=== PATIENT | male | born 1950 | race Caucasian/White ===

== ENCOUNTER → 2016-12-09 | Outpatient (CLI) | payer BC ==
[~2016-12-09] MED LIST: CIPRO 500MG TA500 MG PO; NEXIUM40 MG/PACK PO
--- NOTE | 2016-12-09 11:25 | RADIOLOGY REPORT PS360 ---
MRI-L-SPINE W/O, MRI-3D RENDERING/MYELOGRAM HISTORY: Bilateral low back pain LOW BACK PAIN ORDERING PHYSICIAN: Debbie Tapia MD PATIENT AGE: 65 years COMPARISON: None TECHNIQUE: Standard multiplanar multiecho sequences are performed without contrast. 3-D MIP and myelographic images are also rendered and reviewed FINDINGS: There is normal alignment. The spinal cord ends at the T12-L1 level. There is mild upper lumbar scoliosis convex right L1-L2: Degenerative disc disease with anterior endplate hypertrophic change and minimal concentric bulging disc. Type I endplate changes involve the anterior and inferior aspect of the L1 vertebral body. There is some minimal right lateral recess narrowing from the minimal bulging disc. L2-L3: Degenerative disc disease with mild bulging disc along with facet and ligamentum flavum hypertrophy with mild bilateral lateral recess and [id number] left-sided foraminal narrowing. Type I endplate changes are present along the left lateral aspect of L2-L3 L3-L4: Mild concentric bulging disc along with facet and ligamentum flavum hypertrophy with mild bilateral lateral recess narrowing and mild bilateral foraminal narrowing. The disc spaces well preserved. L4-5: Mild bulging disc along with mild facet and ligamentum hypertrophy with mild right foraminal narrowing L5-S1: Degenerative disc disease with bulging disc along with facet and ligamentum hypertrophy with [id number] right foraminal narrowing. No canal stenosis or extruded herniated disc. IMPRESSION: 1. Multilevel spondylosis of the lumbar spine as detailed above. Please see above for detailed description at each level. There is variable bulging disc, facet and ligamentum flavum hypertrophy, with areas of lateral recess and foraminal narrowing and type II endplate changes. 2. No disc herniation or canal stenosis
--- NOTE | 2016-12-09 11:25 | RADIOLOGY REPORT PS360 ---
MRI-L-SPINE W/O, MRI-3D RENDERING/MYELOGRAM HISTORY: Bilateral low back pain LOW BACK PAIN ORDERING PHYSICIAN: Debbie Tapia MD PATIENT AGE: 65 years COMPARISON: None TECHNIQUE: Standard multiplanar multiecho sequences are performed without contrast. 3-D MIP and myelographic images are also rendered and reviewed FINDINGS: There is normal alignment. The spinal cord ends at the T12-L1 level. There is mild upper lumbar scoliosis convex right L1-L2: Degenerative disc disease with anterior endplate hypertrophic change and minimal concentric bulging disc. Type I endplate changes involve the anterior and inferior aspect of the L1 vertebral body. There is some minimal right lateral recess narrowing from the minimal bulging disc. L2-L3: Degenerative disc disease with mild bulging disc along with facet and ligamentum flavum hypertrophy with mild bilateral lateral recess and [id number] left-sided foraminal narrowing. Type I endplate changes are present along the left lateral aspect of L2-L3 L3-L4: Mild concentric bulging disc along with facet and ligamentum flavum hypertrophy with mild bilateral lateral recess narrowing and mild bilateral foraminal narrowing. The disc spaces well preserved. L4-5: Mild bulging disc along with mild facet and ligamentum hypertrophy with mild right foraminal narrowing L5-S1: Degenerative disc disease with bulging disc along with facet and ligamentum hypertrophy with [id number] right foraminal narrowing. No canal stenosis or extruded herniated disc. IMPRESSION: 1. Multilevel spondylosis of the lumbar spine as detailed above. Please see above for detailed description at each level. There is variable bulging disc, facet and ligamentum flavum hypertrophy, with areas of lateral recess and foraminal narrowing and type II endplate changes. 2. No disc herniation or canal stenosis
--- NOTE | 2016-12-09 11:25 | RADIOLOGY REPORT PS360 ---
MRI-L-SPINE W/O, MRI-3D RENDERING/MYELOGRAM HISTORY: Bilateral low back pain LOW BACK PAIN ORDERING PHYSICIAN: Debbie Tapia MD PATIENT AGE: 65 years COMPARISON: None TECHNIQUE: Standard multiplanar multiecho sequences are performed without contrast. 3-D MIP and myelographic images are also rendered and reviewed FINDINGS: There is normal alignment. The spinal cord ends at the T12-L1 level. There is mild upper lumbar scoliosis convex right L1-L2: Degenerative disc disease with anterior endplate hypertrophic change and minimal concentric bulging disc. Type I endplate changes involve the anterior and inferior aspect of the L1 vertebral body. There is some minimal right lateral recess narrowing from the minimal bulging disc. L2-L3: Degenerative disc disease with mild bulging disc along with facet and ligamentum flavum hypertrophy with mild bilateral lateral recess and [id number] left-sided foraminal narrowing. Type I endplate changes are present along the left lateral aspect of L2-L3 L3-L4: Mild concentric bulging disc along with facet and ligamentum flavum hypertrophy with mild bilateral lateral recess narrowing and mild bilateral foraminal narrowing. The disc spaces well preserved. L4-5: Mild bulging disc along with mild facet and ligamentum hypertrophy with mild right foraminal narrowing L5-S1: Degenerative disc disease with bulging disc along with facet and ligamentum hypertrophy with [id number] right foraminal narrowing. No canal stenosis or extruded herniated disc. IMPRESSION: 1. Multilevel spondylosis of the lumbar spine as detailed above. Please see above for detailed description at each level. There is variable bulging disc, facet and ligamentum flavum hypertrophy, with areas of lateral recess and foraminal narrowing and type II endplate changes. 2. No disc herniation or canal stenosis
--- NOTE | 2016-12-09 11:25 | RADIOLOGY REPORT PS360 ---
MRI-L-SPINE W/O, MRI-3D RENDERING/MYELOGRAM HISTORY: Bilateral low back pain LOW BACK PAIN ORDERING PHYSICIAN: Debbie Tapia MD PATIENT AGE: 65 years COMPARISON: None TECHNIQUE: Standard multiplanar multiecho sequences are performed without contrast. 3-D MIP and myelographic images are also rendered and reviewed FINDINGS: There is normal alignment. The spinal cord ends at the T12-L1 level. There is mild upper lumbar scoliosis convex right L1-L2: Degenerative disc disease with anterior endplate hypertrophic change and minimal concentric bulging disc. Type I endplate changes involve the anterior and inferior aspect of the L1 vertebral body. There is some minimal right lateral recess narrowing from the minimal bulging disc. L2-L3: Degenerative disc disease with mild bulging disc along with facet and ligamentum flavum hypertrophy with mild bilateral lateral recess and [id number] left-sided foraminal narrowing. Type I endplate changes are present along the left lateral aspect of L2-L3 L3-L4: Mild concentric bulging disc along with facet and ligamentum flavum hypertrophy with mild bilateral lateral recess narrowing and mild bilateral foraminal narrowing. The disc spaces well preserved. L4-5: Mild bulging disc along with mild facet and ligamentum hypertrophy with mild right foraminal narrowing L5-S1: Degenerative disc disease with bulging disc along with facet and ligamentum hypertrophy with [id number] right foraminal narrowing. No canal stenosis or extruded herniated disc. IMPRESSION: 1. Multilevel spondylosis of the lumbar spine as detailed above. Please see above for detailed description at each level. There is variable bulging disc, facet and ligamentum flavum hypertrophy, with areas of lateral recess and foraminal narrowing and type II endplate changes. 2. No disc herniation or canal stenosis
== END ==
LOC: RAD 12-05 09:30
DX: M54.5 Low back pain (principal)